=== PATIENT | female | born 1950 | race Caucasian/White ===

== ENCOUNTER 2018-10-02 10:18 | Outpatient (CLI) | payer MEDICARE, MEDICAID, SELFPAY ==
[2018-10-02 11:41] LABS: Abs Immature Grans 0.01 k/cumm (0.0-0.09); Absolute Basophil Count 0.03 k/cumm (0.0-0.2); Absolute Eosinophil Count 0.14 k/cumm (0.0-0.7); Absolute Lymphocyte Count 2.85 k/cumm (1.2-3.4); Absolute Monocyte Count 0.75 k/cumm (0.11-0.7); Absolute Neutrophil Count 4.12 k/cumm (1.2-6.7); Basophils % 0.4; Eosinophils % 1.8; HCT 37.2 % (36.0-46.0); HGB 12.7 g/dL (12.0-15.5); Immature Grans % 0.1; Lymphocytes % 36.1; Mean Corp. HGB Concentration 34.1 g/dL (32.0-36.0); Mean Corpuscular Hemoglobin 29.5 pg (27.0-33.0); Mean Corpuscular Volume 86.3 fL (80-95); Mean Platelet Volume 9.8 fL (8.0-11.0); Monocytes % 9.5; Neutrophils % 52.1; Platelet Count 324 x1000/uL (130-400); RBC 4.31 m/cumm (4.00-5.20); RBC Distribution Width 12.6 % (11.7-14.6)
[2018-10-02 12:38] LABS: ALT 29 U/L (12-78); AST 19 U/L (15-37); Albumin 3.4 g/dL (3.4-5.0); Alkaline Phosphatase 80 U/L (46-116); Anion Gap 7.2 mmol/L (3-11); BUN 21 mg/dL (7-18); Bilirubin, Total 0.5 mg/dL (0.2-1.0); CO2 28.8 mmol/L (21.0-32.0); CREATININE 0.78 mg/dL (0.55-1.02); Calcium 9.2 mg/dL (8.5-10.1); Chloride 101 mmol/L (98-107); Cholesterol 250 mg/dL (50-200); Glucose 101 mg/dL (70-100); HDL Cholesterol 81 mg/dL (40-60); LDL CHOLESTEROL 145 mg/dL (<100); Potassium 3.9 mmol/L (3.5-5.1); Sodium 137 mmol/L (136-145); TSH 3.49 uIU/mL (0.358-3.74); Total Protein 7.1 g/dL (6.4-8.2); Triglyceride 58 mg/dL (30-150)
== END 2018-10-02 10:38 ==
PROVIDERS: PCP Naturopath; Visit Provider Naturopath
DX: I10 Essential (primary) hypertension (principal); R21 Rash and other nonspecific skin eruption
CPT/HCPCS: 36415; 80053; 80061; 82306; 83721; 84443; 85025

== ENCOUNTER 2025-03-11 16:04 | Inpatient (IN) | payer MEDICARE, MEDICAID, SELFPAY ==
[2025-03-11] VITALS (57 sets, daily range): BP systolic 160–235; BP diastolic 76–145; PULSE 74–103; RESP 11–30; TEMP 36.8; O2SAT 96–99
--- NOTE | 2025-03-11 16:16 | DI.CT_ITS ---
Exam(s) CT BRAIN NECK CTA EXAM: CT BRAIN NECK CTA CLINICAL HISTORY: code stroke, R UE weakness + dysmetria. TECHNIQUE: Imaging Protocol: Axial CT angiography was performed with multi- slice acquisition and multi-planar and/or 3D reconstructions. CONTRAST MATERIAL: Intravenous: Omnipaque 350 Contrast volume:70 mL COMPARISON: No exams were available for comparison FINDINGS: CTA Neck W: ANTERIOR CIRCULATION:: Aortic arch is conventional. There is no significant stenosis at the origin of the common carotid arteries. Both common carotid arteries ascend with normal luminal diameters. There is minimal plaque at the carotid bifurcations and proximal ICAs with no significant stenosis at these levels. Both internal carotid arteries are also demonstrated to be nicely patent in the upper neck and skull base-carotid canals. POSTERIOR CIRCULATION. The dominant left vertebral artery originates in conventional fashion off of the left subclavian artery and ascends with a luminal diameter 3.5 mm in the foramen transverse area and is the main contributor to formation of the basilar artery at the skull base. The smaller right vertebral artery arises off the medial wall of the right subclavian artery without stenosis at this level and it ascends in the foramen transverse area with luminal diameter of 1.8 mm. At the skull base it terminates as the right posterior inferior cerebellar artery CTA Brain W: Anterior circulation: Both internal carotid arteries are patent in the skull base-carotid canals as well as within the cavernous sinuses. The supraclinoid aspects of the ICAs are patent. Both A1 segments are patent as are the anterior cerebral arteries and there is no evidence of aneurysm at the level of the anterior communicating artery. Both middle cerebral arteries are patent with no evidence of significant stenosis nor intraluminal thrombus. There also no aneurysms of these vessels. Posterior circulation: The basilar artery ascends in the midline. Distally it gives off patent bilateral superior cerebellar arteries. Above this level both posterior cerebral arteries are predominantly supplied by persistent circulation-posterior communicating arteries on both sides the itxfke-kv-sxrcjl. both p1 segments are atretic. There is no evidence of aneurysm at the tip of the basilar artery nor elsewhere in the jdnmzx-hx-Loltrb. CT BRAIN: There is no evidence of intracranial hemorrhage, mass effect, or shift of midline structures. There are no extra-axial fluid collections. Ventricles are not enlarged or shifted. There are no ring enhancing lesions in the brain and no abnormal meningeal enhancement. There is a well-defined CSF hypodensity in the anterior limb of the right internal capsule measuring 1.0 x 0.5 x 1.0 cm and most probably a nonacute and nonhemorrhagic lacunar infarct. No similar finding seen elsewhere in the brain. IMPRESSION: 1. Patent carotid arteries in the neck. No hemodynamically significant stenosis. No dissection 2. Patent vertebral arteries. The left vertebral artery is dominant 3. Patent intracranial arteries. Incidentally noted is persistent circulation in the posterior circulation of the brain with patent posterior communicating arteries on both sides the aompvl-dk-Senzuf being the predominant feeders of the bilateral posterior cerebral arteries. 4. There is a 10 x 5 x 10 mm nonacute appearing nonhemorrhagic lacunar infarct in the anterior limb of the right internal capsule of the brain. No evidence of acute territorial infarct and no evidence of intracranial hemorrhage. Report called by myself to ER provider 03/11/2025 at 5 p.m. RADIATION DOSE DELIVERED: 2,198.34mGy.cm Total DLP DATA REPOSITORY: All CT scans at this facility are submitted to the National Radiology Data Registry (NRDR) Dose Index Registry (DIR) with the [employer] ([employer]). RADIATION OPTIMIZATION: All CT scans at this facility use at least one of these dose optimization techniques: automated exposure control; mA and/or kV adjustment per patient size (includes targeted exams where dose is matched to clinical indication); or iterative reconstruction.
[2025-03-11 16:32] LABS: Abs Immature Grans 0.02 10^3/uL (0.0-0.06); HCT 40.7 % (36.0-46.0); HGB 13.4 g/dL (11.2-15.7); Immature Grans % 0.2 %; MCH 29.2 pg (27.0-33.0); MCHC 32.9 % (32.0-36.0); MCV 89 fL (80-95); MPV 9.5 fL (8.0-11.0); Platelet Count 319 10^3/uL (130-400); RBC 4.59 10^6/uL (3.93-5.22); RDW 13.1 % (11.7-14.6); RDW-SD 42.8 fL; WBC 8.84 10^3/uL (4.4-10.8)
[2025-03-11] MEDS: Normal Saline - Diluent 50 ML VIAL IJ (16:34)
[2025-03-11] MEDS: Normal Saline Flush 10 ML SYR IVP (16:36)
[2025-03-11] MEDS: Omnipaque 350 MG/ML 100 ML BTL IJ (16:36)
[2025-03-11 16:47] LABS: INR 1.0 (0.9-1.1); PTT Activated 24.7 sec (20.6-30.2); Prothrombin Time 10.4 sec (9.1-11.1)
--- NOTE | 2025-03-11 16:49 | ED.GENADUL_ITS ---
Discharge Plan Disposition Patient Disposition: Admit to [facility] Condition: Stable Discharge Details Clinical Impression: Cerebrovascular accident Admit Date/Time: 03/11/25 19:06 Admit Provider: Vu Downey Attending Provider: Vu Downey Primary Care Provider: Kristina Junior ED Provider: Bruce Torres [facility] General Date/Time Provider Initiated Documentation: 03/11/25 16:11 . HPI Narrative: 75 year-old female presents to ED today by POV/ambulating with her with a chief complaint of possible stroke- felt off this morning mid-morning, took a nap for 30 minutes, woke up with vertigo, R sided weakness/coordination issues, and gait problems with onset around 1130- but notes that she had more noticeable tingling and numbness to R hand about 1.5 hours ago. Quality described as feels off, weak on R hand/foot, no radiation to visual changes, endorses mild speech abnormality, denies chest pain, paresis. Severity is described as unable to quantify. Palliating factors include nothing attempted. Provoking factors include nothing specific. Events leading up to the incident/Associated Symptoms: Patient denies stroke history. Patient not anticoagulated. Related Data Home Medications Medication Instructions Recorded Confirmed losartan 50 mg tablet 50 mg PO BID 03/11/25 General Stated Complaint: CVA/TIA ALVIN: 2 Review of Systems All systems reviewed & are unremarkable except as noted in HPI and below Exam Narrative Exam Narrative: GENERAL APPEARANCE: Well-nourished, non-toxic, awake and alert, atraumatic, mild acute distress. SKIN: Warm, pink, dry, intact, without rashes/lesions/ulcerations. HEAD: Normocephalic, atraumatic, normal hair distribution for gender/age. EYES: Normal conjunctiva, no exudates on lids/lashes, EOMs intact without nystagmus, no visual field deficits, vision grossly intact ENT: Nares patent, no circumoral cyanosis, no facial swelling NECK: Supple, trachea midline, painless cervical ROM. LUNGS/CHEST: Lungs CTA bilaterally- no rhonchi/rales/wheezes diffusely, non- labored respirations, normal A/P diameter, symmetrical expansion, no chest wall deformity HEART (CV/PV): Regular rate and rhythm without murmur, no peripheral edema, no JVD. ABDOMEN: Soft, non-distended, no guarding, no tenderness. MSK: Normal ROM, no swelling/deformity to bilateral UEs or LEs, moving all extremities without weakness, no cyanosis, spine midline without tenderness, normal curvature. NEURO: Mental Status AAOx4 - alert to person, place, time, events, states no ifs ands or buts without slurred speech No facial droop, no forehead involvement, has dysmetria with FNF, able to perform heel-sy Motor: No focal weakness - strength 5/5 in bilateral UEs and LEs, proximal, strength 4+/5 distal R LE and R UE, shoulder shrug 5/5 Sensory: sensation intact to light touch globally, endorses less distinct on R face Gait unsteady PSYCH: euthymic, cooperative, pleasant, appropriate speech Course Vital Signs Vital signs: Vital Signs Temperature 36.8 C 03/11/25 16:08 Pulse 99 H 03/11/25 16:08 Respiratory Rate 20 03/11/25 16:08 Blood Pressure 232/116 H 03/11/25 16:08 Pulse Oximetry 96 03/11/25 16:08 Temperature 36.8 C 03/11/25 16:08 Pulse 99 H 03/11/25 16:08 Respiratory Rate 20 03/11/25 16:08 Blood Pressure 232/116 H 03/11/25 16:08 Blood Pressure Position Sitting 03/11/25 16:08 Pulse Oximetry 96 03/11/25 16:08 Oxygen Delivery Method Room Air 03/11/25 16:08 Oxygen Flow Rate 0 03/11/25 16:08 Lab/Test Results Lab/Test Results: Laboratory Tests Range/Units 03/11/25 16:20 WBC (4.4-10.8) 10^3/uL 8.84 RBC (3.93-5.22) 10^6/uL 4.59 Hgb (11.2-15.7) g/dL 13.4 Hct (36.0-46.0) % 40.7 MCV (80-95) fL 89 MCH (27.0-33.0) pg 29.2 MCHC (32.0-36.0) % 32.9 RDW (11.7-14.6) % 13.1 Plt Count (130-400) 10^3/uL 319 MPV (8.0-11.0) fL 9.5 Immature Gran % % 0.2 Neutrophils % % 65.1 Lymphocytes % % 28.8 Monocytes % % 5.0 Eosinophils % % 0.3 Basophils % % 0.6 Nucleated RBC % (0.0-0.3) % 0.0 Absolute Neutrophils (1.2-6.7) 10^3/uL 5.75 Absolute Lymphocytes (1.2-3.4) 10^3/uL 2.55 Absolute Monocytes (0.1-0.8) 10^3/uL 0.44 Absolute Eosinophils (0.0-0.7) 10^3/uL 0.03 Absolute Basophils (0.0-0.2) 10^3/uL 0.05 PT (9.1-11.1) sec 10.4 INR (0.9-1.1) 1.0 APTT (20.6-30.2) sec 24.7 Medical Decision Making This dictation utilizes [id number]-casf dictation software and may contain unedited grammatical errors. 75 year-old female presents to ED today by POV/ambulating with her with a chief complaint of possible stroke- felt off this morning mid-morning, took a nap for 30 minutes, woke up with vertigo, R sided weakness/coordination issues, and gait problems with onset around 1130- but notes that she had more noticeable tingling and numbness to R hand about 1.5 hours ago. Quality described as feels off, weak on R hand/foot, no radiation to visual changes, endorses mild speech abnormality, denies chest pain, paresis. Severity is described as unable to quantify. Palliating factors include nothing attempted. Provoking factors include nothing specific. Events leading up to the incident/Associated Symptoms: Patient denies stroke history. Patients' medical history: Hypertension. Family and social history: Lives at home with her , gets regular exercise eats a normal diet. Pertinent exam findings / vital signs include extremely hypertensive on arrival 230/115, having dysmetria of the right upper extremity, visual crooks intact, strength is 4+/5 in the right arm only and 4+/5 with plantarflexion, the proximal extremities strength is 5/5, patient states no ifs, ands or buts, identifies objects, has no nystagmus, shoulder shrug 5/5, has dysmetria with pjgvxg-yigr-kkyqqt but able to perform heel sy. Differential / pathologies of concern include stroke, hypertensive emergency. Diagnostic studies of: - Code stroke-CTA of the brain and neck, CBC, CMP, coagulation studies, magnesium, serial troponins, TSH, UA, alcohol level, EKG. - CTA shows an old lacunar infarct but no medium or large vessel occlusion and no new infarction - EKG shows diffuse ST depressions likely from her hypertensive emergency - CBC is unremarkable - Coagulation studies within normal limits - CMP shows only mild hypokalemia 3.4 - Magnesium within normal limits - TSH within normal limits - Alcohol level negative - UA is benign - Initial troponin 20, 2-hour repeat shows a troponin of 209 likely in the setting of uncontrolled hypertension Interventions of: - Teleneuro was performed, patient is outside window for thrombolytic per my evaluation of onset as well as neurology, difficult historian but symptoms were definitely present this morning in the mid morning prior to her nap and when she woke which puts her outside window. Started on 300 of Plavix as well as full- strength aspirin and 80 of atorvastatin, discussed with hospitalist Dr. Downey who admitted the patient to ICU as we did place her on nicardipine drip with goal of reducing her blood pressure 10%. ED Course/Assessment/Plan: 75-year-old female presents with onset of strokelike syndrome at some point this midmorning possibly around 11 AM, she states she felt off and then went to take a 30-minute nap and after she awoke she had vertigo, she notes she had some weakness to the right arm that seems to be getting worse throughout the afternoon and about an hour and a half ago endorse some numbness of the right leg and arm, she has dysmetria with the right upper extremity and a mild weakness of the distal right extremities only, I spoke with teleneurology who states that she is outside window, we did start her on Plavix aspirin and statin, this also may be a syndrome of hypertensive emergency, the patient was started on nicardipine with a goal of lowering the blood pressure 10% over the first couple hours, patient was admitted to ICU by Dr. Downey. Disposition of Cerebrovascular Accident. Patient verbalized understanding of the plan and return to ED criteria and engaged in shared decision making. Medical Records Medical records reviewed: Yes I reviewed the patient's medical records. Imaging Data Radiologic Study: Attestation: I personally reviewed and interpreted this imaging study as follows: Imaging: CT Scan Radiologist's impression: EXAM: CT BRAIN NECK CTA CLINICAL HISTORY: code stroke, R UE weakness + dysmetria. TECHNIQUE: Imaging Protocol: Axial CT angiography was performed with multi- slice acquisition and multi-planar and/or 3D reconstructions. CONTRAST MATERIAL: Intravenous: Omnipaque 350 Contrast volume:70 mL COMPARISON: No exams were available for comparison FINDINGS: CTA Neck W: ANTERIOR CIRCULATION:: Aortic arch is conventional. There is no significant stenosis at the origin of the common carotid arteries. Both common carotid arteries ascend with normal luminal diameters. There is minimal plaque at the carotid bifurcations and proximal ICAs with no significant stenosis at these levels. Both internal carotid arteries are also demonstrated to be nicely patent in the upper neck and skull base-carotid canals. POSTERIOR CIRCULATION. The dominant left vertebral artery originates in conventional fashion off of the left subclavian artery and ascends with a luminal diameter 3.5 mm in the foramen transverse area and is the main contributor to formation of the basilar artery at the skull base. The smaller right vertebral artery arises off the medial wall of the right subclavian artery without stenosis at this level and it ascends in the foramen transverse area with luminal diameter of 1.8 mm. At the skull base it terminates as the right posterior inferior cerebellar artery CTA Brain W: Anterior circulation: Both internal carotid arteries are patent in the skull base-carotid canals as well as within the cavernous sinuses. The supraclinoid aspects of the ICAs are patent. Both A1 segments are patent as are the anterior cerebral arteries and there is no evidence of aneurysm at the level of the anterior communicating artery. Both middle cerebral arteries are patent with no evidence of significant stenosis nor intraluminal thrombus. There also no aneurysms of these vessels. Posterior circulation: The basilar artery ascends in the midline. Distally it gives off patent bilateral superior cerebellar arteries. Above this level both posterior cerebral arteries are predominantly supplied by persistent circulation-posterior communicating arteries on both sides the ximnyf-qg-zezqjq. both p1 segments are atretic. There is no evidence of aneurysm at the tip of the basilar artery nor elsewhere in the gaizvn-hz-Etssls. CT BRAIN: There is no evidence of intracranial hemorrhage, mass effect, or shift of midline structures. There are no extra-axial fluid collections. Ventricles are not enlarged or shifted. There are no ring enhancing lesions in the brain and no abnormal meningeal enhancement. There is a well-defined CSF hypodensity in the anterior limb of the right internal capsule measuring 1.0 x 0.5 x 1.0 cm and most probably a nonacute and nonhemorrhagic lacunar infarct. No similar finding seen elsewhere in the brain. IMPRESSION: 1. Patent carotid arteries in the neck. No hemodynamically significant stenosis. No dissection 2. Patent vertebral arteries. The left vertebral artery is dominant 3. Patent intracranial arteries. Incidentally noted is persistent circulation in the posterior circulation of the brain with patent posterior communicating arteries on both sides the jdamuz-za-Hwluli being the predominant feeders of the bilateral posterior cerebral arteries. 4. There is a 10 x 5 x 10 mm nonacute appearing nonhemorrhagic lacunar infarct in the anterior limb of the right internal capsule of the brain. No evidence of acute territorial infarct and no evidence of intracranial hemorrhage. Report called by myself to ER provider 03/11/2025 at 5 p.m. Lab Data Lab results reviewed: Yes I reviewed the patient's lab results. Labs: Laboratory Tests Range/Units 03/11/25 03/11/25 03/11/25 16:20 16:45 18:10 WBC (4.4-10.8) 10^3/uL 8.84 RBC (3.93-5.22) 10^6/uL 4.59 Hgb (11.2-15.7) g/dL 13.4 Hct (36.0-46.0) % 40.7 MCV (80-95) fL 89 MCH (27.0-33.0) pg 29.2 MCHC (32.0-36.0) % 32.9 RDW (11.7-14.6) % 13.1 Plt Count (130-400) 10^3/uL 319 MPV (8.0-11.0) fL 9.5 Immature Gran % % 0.2 Neutrophils % % 65.1 Lymphocytes % % 28.8 Monocytes % % 5.0 Eosinophils % % 0.3 Basophils % % 0.6 Nucleated RBC % (0.0-0.3) % 0.0 Absolute Neutrophils (1.2-6.7) 10^3/uL 5.75 Absolute Lymphocytes (1.2-3.4) 10^3/uL 2.55 Absolute Monocytes (0.1-0.8) 10^3/uL 0.44 Absolute Eosinophils (0.0-0.7) 10^3/uL 0.03 Absolute Basophils (0.0-0.2) 10^3/uL 0.05 PT (9.1-11.1) sec 10.4 INR (0.9-1.1) 1.0 APTT (20.6-30.2) sec 24.7 Sodium (136-145) mmol/L 136 Potassium (3.5-5.1) mmol/L 3.4 L Chloride (98-107) mmol/L 99 Carbon Dioxide (21.0-32.0) mmol/L 25.3 Anion Gap (3-11) mmol/L 11.7 H BUN (7-18) mg/dL 25 H Creatinine (0.55-1.02) mg/dL 0.8 Est GFR (CKD-EPI 2020) (mL/min/1.73m2) 76.31 Glucose (74-106) mg/dL 158 H Calcium (8.5-10.1) mg/dL 9.0 Magnesium (1.8-2.4) mg/dL 2.1 Total Bilirubin (0.2-1.0) mg/dL 0.3 AST (15-37) U/L 24 ALT (14-59) U/L 46 Alkaline Phosphatase (46-116) U/L 99 Troponin I (<or=51) ng/L 20 209 H* Total Protein (6.4-8.2) g/dL 8.3 H Albumin (3.4-5.0) g/dL 4.0 TSH (0.36-3.74) uIU/mL 2.68 Urine Color (Yellow) Yellow Urine Clarity (Clear) Clear Urine pH (5-8) 7.0 Ur Specific [place] (1.005-1.025) >= 1.030 H Urine Protein (Neg-Trace) mg/dL >=300 H Urine Ketones (Negative) mg/dL 15 H Urine Blood (Negative) Trace-lysed H Urine Nitrite (Negative) Negative Urine Bilirubin (Negative) Negative Urine Urobilinogen (Up to 0.2) mg/dL 0.2 Ur Leukocyte Esterase (Negative) Negative Urine RBC (0-2) HPF 5-10 H Urine WBC (0-5) HPF 3-5 Ur Epithelial Cells (Negative) HPF Moderate Urine Crystals (Negative) HPF Negative Urine Bacteria (Negative) HPF Moderate Urine Casts (Negative) LPF Negative Urine Mucus (Negative) Negative Ur Culture Indicated? No Urine Glucose (Negative) mg/dL Negative Ethyl Alcohol (<10) mg/dL < 3.0 PFSH All Active Problems (Updated 03/11/25 @ 20:34 by WENDY Bliss) Cerebrovascular accident (Chronic) Social History Smoking/Tobacco Use Status: Never Smoking risk assessment performed?: Yes Drug use: Never Do you feel safe at home: Yes Do you feel safe in your relationship?: Yes
[2025-03-11 16:50] LABS: ALT 46 U/L (14-59); AST 24 U/L (15-37); Albumin 4.0 g/dL (3.4-5.0); Alkaline Phosphatase 99 U/L (46-116); Anion Gap 11.7 mmol/L (3-11); BUN 25 mg/dL (7-18); Bilirubin, Total 0.3 mg/dL (0.2-1.0); CO2 25.3 mmol/L (21.0-32.0); Calcium 9.0 mg/dL (8.5-10.1); Chloride 99 mmol/L (98-107); Glucose 158 mg/dL (74-106); Magnesium 2.1 mg/dL (1.8-2.4); Potassium 3.4 mmol/L (3.5-5.1); Sodium 136 mmol/L (136-145); Total Protein 8.3 g/dL (6.4-8.2); Troponin I 20 ng/L (<or=51)
[2025-03-11 17:03] LABS: Glucose Negative (Negative)
[2025-03-11 17:10] LABS: C & S Indicated? No
[2025-03-11 17:13] LABS: TSH (W/Ref FT4) 2.68 uIU/mL (0.36-3.74)
[2025-03-11] MEDS: Clopidogrel 300 MG TAB PO (18:12)
[2025-03-11] MEDS: niCARdipine 25 MG in Normal Saline 240 ML 50 MG IV (18:12)
[2025-03-11] MEDS: Aspirin 325 MG TAB PO (18:13)
[2025-03-11] MEDS: Atorvastatin 40 MG TAB 80 MG PO (18:13)
[2025-03-11 18:43] LABS: Troponin I 209 ng/L (<or=51)
--- NOTE | 2025-03-11 19:00 | RT.EKG_ITS ---
APPROVED REPORT Exam: Resting ECG Reason for Exam: elev trop Patient Location: E HR:99 bpm ECG Measurements Heart Rate 99 AXIS HI 153 P 63 QRSd 82 QRS 23 QT 368 T 63 QTc 474 Conclusion Sinus rhythm...normal P axis, V-rate 60- 99 Repol abnrm suggests ischemia, anterolateral...ST dep, T neg, I aVL V2-V6
--- NOTE | 2025-03-11 19:27 | NUR.NOTE ---
Nursing Note: Pt. concerned that her BP is dropping too low too fast, she was reassured that her BP and her vitals look great. The hospitalist was just in the room with the patient explaining everything but patient is insisting she needs to talk to the Provider again because she is concerned about her BP being too low, her BP is currently 170/120. Pt. was reassured by this nurse but she is insisting she wants to hear from the physician. I informed the patient that I would let the provider know, Hospitalist was called and he said he was too busy at the moment. Pt. asking to call the physician herself, called [facility] with her personal cell phone to attempt this. Pt. being very rude with me when trying to explain her disease process. Cardene Drip stopped due to patient stating her heart was racing and she felt that she shouldn't be getting it. Hospitalist was notified and is ok with the drip being stopped at this time.
--- NOTE | 2025-03-11 20:07 | W.PCEDHO ---
Registration Status: REG ER Primary Language: Preferred Language: Telugu ED Information & Data Chief Complaint CVA/TIA 03/11/25 16:50 Triage Note PT started experiencing r 03/11/25 16:08 sided weakness 4 hours ago. Tingling sensation/numbness 1 hour ago. Most Recent Vital Signs Temperature 36.8 C 03/11/25 16:08 Pulse 96 H 03/11/25 18:49 Pulse Rhythm Regular 03/11/25 18:49 Pulse Strength Normal 03/11/25 18:49 Pulse 93 H 03/11/25 18:31 Respiratory Rate 18 03/11/25 18:49 Respiratory Effort Normal 03/11/25 18:49 Respiratory Depth Normal 03/11/25 18:49 Respiratory Pattern Normal 03/11/25 18:49 Blood Pressure 169/83 H 03/11/25 18:49 Blood Pressure Mean 111 03/11/25 18:49 Blood Pressure Position Sitting 03/11/25 18:49 Pulse Oximetry 98 03/11/25 18:49 Oxygen Delivery Method Room Air 03/11/25 18:49 Oxygen Flow Rate 0 03/11/25 18:49 Precautions Isolation Standard precaution 03/11/25 16:16 Active Medications Generic Name Dose Route Start Last Admin Trade Name Freq PRN Reason Stop Dose Admin Atorvastatin Calcium 80 mg 03/11/25 20:00 03/11/25 18:13 Atorvastatin 40 Mg Tab PO 80 mg QPM JHONNY Administration Nicardipine HCl 25 mg/ Sodium 250 mls @ 0 mls/hr 03/11/25 18:00 03/11/25 18:56 Chloride IV 2.5 mg/hr INFUSION JHONNY 25 mls/hr Protocol Titration Per Protocol Iohexol 100 ml 03/11/25 16:45 03/11/25 16:36 Omnipaque 350 Mg/Ml 100 Ml Btl IJ 04/10/25 23:59 70 ml DIRECTED JHONNY Administration Sodium Chloride 50 ml 03/11/25 16:45 03/11/25 16:34 Normal Saline - Diluent 50 Ml Vial IJ 50 ml DIRECTED JHONNY Administration Sodium Chloride 0 ml 03/11/25 16:31 03/11/25 16:36 Normal Saline Flush 10 Ml Syr IVP 10 ml PRN PRN Administration IV IV Catheter Type [Left Saline Lock Antecubital] IV Catheter Gauge [Left 18 Antecubital] Diet Orders Category Date Time Status Nothing Per Oral [DIET] Nutrition 03/11/25 19:07 Active Diagnostics 03/11/25 03/11/25 03/11/25 Range/Units 18:10 16:45 16:20 WBC 8.84 (4.4-10.8) 10^3/uL RBC 4.59 (3.93-5.22) 10^6/uL Hgb 13.4 (11.2-15.7) g/dL Hct 40.7 (36.0-46.0) % MCV 89 (80-95) fL MCH 29.2 (27.0-33.0) pg MCHC 32.9 (32.0-36.0) % RDW 13.1 (11.7-14.6) % Plt Count 319 (130-400) 10^3/uL MPV 9.5 (8.0-11.0) fL Immature Gran % 0.2 % Neutrophils % 65.1 % Lymphocytes % 28.8 % Monocytes % 5.0 % Eosinophils % 0.3 % Basophils % 0.6 % Nucleated RBC % 0.0 (0.0-0.3) % Absolute Neutrophils 5.75 (1.2-6.7) 10^3/uL Absolute Lymphocytes 2.55 (1.2-3.4) 10^3/uL Absolute Monocytes 0.44 (0.1-0.8) 10^3/uL Absolute Eosinophils 0.03 (0.0-0.7) 10^3/uL Absolute Basophils 0.05 (0.0-0.2) 10^3/uL PT 10.4 (9.1-11.1) sec INR 1.0 (0.9-1.1) APTT 24.7 (20.6-30.2) sec Sodium 136 (136-145) mmol/L Potassium 3.4 L (3.5-5.1) mmol/L Chloride 99 (98-107) mmol/L Carbon Dioxide 25.3 (21.0-32.0) mmol/L Anion Gap 11.7 H (3-11) mmol/L BUN 25 H (7-18) mg/dL Creatinine 0.8 (0.55-1.02) mg/dL Est GFR (CKD-EPI 2020) 76.31 (mL/min/1.73m2) Glucose 158 H (74-106) mg/dL Calcium 9.0 (8.5-10.1) mg/dL Magnesium 2.1 (1.8-2.4) mg/dL Total Bilirubin 0.3 (0.2-1.0) mg/dL AST 24 (15-37) U/L ALT 46 (14-59) U/L Alkaline Phosphatase 99 (46-116) U/L Troponin I 209 H* 20 (<or=51) ng/L Total Protein 8.3 H (6.4-8.2) g/dL Albumin 4.0 (3.4-5.0) g/dL TSH 2.68 (0.36-3.74) uIU/mL Urine Color Yellow (Yellow) Urine Clarity Clear (Clear) Urine pH 7.0 (5-8) Ur Specific Julian >= 1.030 H (1.005-1.025) Urine Protein >=300 H (Neg-Trace) mg/dL Urine Ketones 15 H (Negative) mg/dL Urine Blood Trace-lysed H (Negative) Urine Nitrite Negative (Negative) Urine Bilirubin Negative (Negative) Urine Urobilinogen 0.2 (Up to 0.2) mg/dL Ur Leukocyte Esterase Negative (Negative) Urine RBC 5-10 H (0-2) HPF Urine WBC 3-5 (0-5) HPF Ur Epithelial Cells Moderate (Negative) HPF Urine Crystals Negative (Negative) HPF Urine Bacteria Moderate (Negative) HPF Urine Casts Negative (Negative) LPF Urine Mucus Negative (Negative) Ur Culture Indicated? No Urine Glucose Negative (Negative) mg/dL Ethyl Alcohol < 3.0 (<10) mg/dL [id number] Documentation Fingerstick Glucose Start: 03/11/25 16:19 Freq: Status: Active Protocol: Activity Type Activity Date Activity User E-sign Co-sign Detail Recorded Client Recorded Date Recorded By Document 03/11/25 16:18 BKG DAEMON(10) [id number] 03/11/25 16:19 BKG DAEMON(10) Intake and Output - 24 Hour Total 03/11/25 16:04 thru 03/11/25 18:56 Intake Total 46.667 Balance 46.667 Weight 45.359 kg Intake: IV 46.667 Falls Risk Assessment History of Falls No History 03/11/25 16:58 Contributing Factors No Factors 03/11/25 16:58 Ambulatory Aids Independent 03/11/25 16:58 Tubes/Lines None 03/11/25 16:58 Gait Evaluation No gait disturbance 03/11/25 16:58 Cognition No cognitive impairment 03/11/25 16:58 Fall Total Score 0 03/11/25 16:58 Level of Risk Standard/Low Risk 03/11/25 16:58 Notes 03/11/25 19:27 Nursing Notes by Preethi Alanis Nursing Note: Pt. concerned that her BP is dropping too low too fast, she was reassured that her BP and her vitals look great. The hospitalist was just in the room with the patient explaining everything but patient is insisting she needs to talk to the Provider again because she is concerned about her BP being too low, her BP is currently 170/120. Pt. was reassured by this nurse but she is insisting she wants to hear from the physician. I informed the patient that I would let the provider know, Hospitalist was called and he said he was too busy at the moment. Pt. asking to call the physician herself, called [facility] with her personal cell phone to attempt this. Pt. being very rude with me when trying to explain her disease process. Cardene Drip stopped due to patient stating her heart was racing and she felt that she shouldn't be getting it. Hospitalist was notified and is ok with the drip being stopped at this time. Initialized on 03/11/25 19:27 - END OF NOTE v v v v v v v v v Sending and/or Receiving Nurses: Please use comment section below to note any information pertinent to the patient hand-off not included above. Information / Comments: Report received from: Shasha MURILLO
[2025-03-11] MEDS: Normal Saline 1,000 ML 150 ML IV (20:52)
--- NOTE | 2025-03-11 21:13 | W.PM.HP.N ---
Date of service: 03/11/25 Time of Service: 21:13 Assessment and Plan Assessment and plan (1) Cerebrovascular accident: Status: Chronic Assessment and plan: Pt CT does show subacute infract but i do have concerns that there is an occult infarct as well. MRI is pending. Goal is to keep blood glucose between 140-180, treat fevers should they occur, cw statin/asa/plavix. Consults to speech/pt/occupational/dietary have been placed. Consider echo but not necessary considering pt's age. Allow for permissive htn as long as bp is less than 220/120. (2) Hypokalemia: Status: Acute Assessment and plan: replace orally (3) Hypertension: Status: Chronic Assessment and plan: as above. Currently on Losartan 50mg po bid. Will need optimization as an outpatient (4) Dyslipidemia: Status: Acute Assessment and plan: Pt will continue with high dose statin (5) Elevated troponin: Status: Acute Assessment and plan: Pt's troponin did increase from 20 to appx 200. Pt remains asymptomatic. EKG does show some mild st depression in lateral leads. repeat troponin and ekg at 2200 (6) Dehydration: Status: Acute Assessment and plan: cw ivf ns at 150/hr (7) Hematuria: Status: Acute Assessment and plan: repeat urinalysis in 4-6 weeks to ensure resolution History of Present Illness History of Present Illness Chief Complaint: cva Narrative: This is a 75-year-old female whose only medical issue is hypertension presents with approximately 8 hours of right-sided numbness. While she was in the ED a CT angiogram was performed which did show a subacute infarct. Patient was subsequently mated to the hospital service for further evaluation and treatment. Consultation to teleneurology was placed. On admission blood pressure was over 220 systolic and she was started on nicardipine drip. Patient will be admitted to be ICU. In regards to further workup her potassium was 3.4. Urinalysis was consistent with UTI with increased specific gravity and an elevated BUN to creatinine ratio. On admission her troponin was 20 but a repeat was 209. Patient did not have any chest pain or shortness of breath. Her total cholesterol value was 205 LDL 145 HDL 81. TSH was 2.68. EKG does show some ST depression in the lateral leads. Of note, an EKG was not available for review on admission. Patient is a full code. Her other complaints are of bilateral lower extremity weakness. I will attach the impression of the CT to the bottom of this there. IMPRESSION: 1. Patent carotid arteries in the neck. No hemodynamically significant stenosis. No dissection 2. Patent vertebral arteries. The left vertebral artery is dominant 3. Patent intracranial arteries. Incidentally noted is persistent circulation in the posterior circulation of the brain with patent posterior communicating arteries on both sides the [id number] being the predominant feeders of the bilateral posterior cerebral arteries. 4. There is a 10 x 5 x 10 mm nonacute appearing nonhemorrhagic lacunar infarct in the anterior limb of the right internal capsule of the brain. No evidence of acute territorial infarct and no evidence of intracranial hemorrhage. Review of Systems All systems reviewed & are unremarkable except as noted in HPI and below PFSH All Active Problems (Updated 03/11/25 @ 21:37 by Vu Downey MD) Hematuria (Acute) Dehydration (Acute) Elevated troponin (Acute) Dyslipidemia (Acute) Hypertension (Chronic) Hypokalemia (Acute) Cerebrovascular accident (Chronic) Social History Smoking/Tobacco Use Status: Never Smoking risk assessment performed?: Yes Drug use: Never Do you feel safe at home: Yes Do you feel safe in your relationship?: Yes Meds Allergies and Home Medications Allergies Allergy/AdvReac Type Severity Reaction Status Date / Time Sulfa (Sulfonamide Allergy Intermediate Itching Verified 03/11/25 21:11 Antibiotics) Home Medications Medication Instructions Recorded Confirmed Type losartan 50 mg tablet 50 mg PO BID 03/11/25 03/11/25 History Exam Narrative Exam Narrative: HEENT-normocephalic atraumatic mucous membranes moist extract motions are intact pupils equal round reactive to light Neck-no lymphadenopathy no JVD no thyromegaly Cardiovascular-regular rate and rhythm no murmur rubs gallops Lungs-clear to auscultation bilaterally with good air exchange Abdomen-soft nontender nondistended bowel sounds active scaphoid Extremities-no sinus clubbing or edema Neurologic-dysmetria with right upper extremity. Symmetrical smile can raise her eyebrows symmetrically bilaterally strength 5 out of 5 in upper and lower extremities bilaterally Results Labs 03/11/25 16:20 03/11/25 16:20 Labs: Laboratory Results - last 24 hr 03/11/25 03/11/25 03/11/25 16:20 16:45 18:10 WBC 8.84 RBC 4.59 Hgb 13.4 Hct 40.7 MCV 89 MCH 29.2 MCHC 32.9 RDW 13.1 Plt Count 319 MPV 9.5 Immature Gran % 0.2 Neutrophils % 65.1 Lymphocytes % 28.8 Monocytes % 5.0 Eosinophils % 0.3 Basophils % 0.6 Nucleated RBC % 0.0 Absolute Neutrophils 5.75 Absolute Lymphocytes 2.55 Absolute Monocytes 0.44 Absolute Eosinophils 0.03 Absolute Basophils 0.05 PT 10.4 INR 1.0 APTT 24.7 Sodium 136 Potassium 3.4 L Chloride 99 Carbon Dioxide 25.3 Anion Gap 11.7 H BUN 25 H Creatinine 0.8 Est GFR (CKD-EPI 2020) 76.31 Glucose 158 H Calcium 9.0 Magnesium 2.1 Total Bilirubin 0.3 AST 24 ALT 46 Alkaline Phosphatase 99 Troponin I 20 209 H* Total Protein 8.3 H Albumin 4.0 TSH 2.68 Urine Color Yellow Urine Clarity Clear Urine pH 7.0 Ur Specific [place] >= 1.030 H Urine Protein >=300 H Urine Ketones 15 H Urine Blood Trace-lysed H Urine Nitrite Negative Urine Bilirubin Negative Urine Urobilinogen 0.2 Ur Leukocyte Esterase Negative Urine RBC 5-10 H Urine WBC 3-5 Ur Epithelial Cells Moderate Urine Crystals Negative Urine Bacteria Moderate Urine Casts Negative Urine Mucus Negative Ur Culture Indicated? No Urine Glucose Negative Ethyl Alcohol < 3.0 Last Vital Signs Temp 36.8 C 03/11/25 16:08 Pulse 96 H 03/11/25 18:49 Resp 18 03/11/25 18:49 BP 169/83 H 03/11/25 18:49 Pulse Ox 98 03/11/25 18:49 Time Spent Time spent with Patient: >75 minutes Time was spent: preparing to see the patient(eg.review tests), obtaining and/or reviewing separately otained hiistory, ordering medications,tests, procedures, referring, communicating with other health long term care social worker, indepentently interpreting results, counseling the patient and care coordination
[2025-03-11] MEDS: POTASSIUM CHLORIDE 20 MEQ/100 ML BAG 50 MEQ IV_INF (22:04)
[2025-03-11] MEDS: Pravastatin 20 MG TAB 80 MG PO (22:04)
[2025-03-11] MEDS: Losartan 50 MG TAB PO (22:05)
--- NOTE | 2025-03-11 22:30 | RT.EKG_ITS ---
APPROVED REPORT Exam: Resting ECG Reason for Exam: Recheck for ST depression Patient Location: I HR:81 bpm ECG Measurements Heart Rate 81 AXIS MT 165 P 56 QRSd 88 QRS 38 QT 417 T 59 QTc 484 Conclusion Sinus rhythm...normal P axis, V-rate 50- 99 Normal Electrocardiogram
[2025-03-11 22:57] LABS: Troponin I 590 ng/L (<or=51)
[2025-03-12] VITALS (109 sets, daily range): BP systolic 139–205; BP diastolic 70–138; PULSE 49–105; RESP 6–32; TEMP 36.5–37.4; O2SAT 81–100
[2025-03-12] MEDS: Omnipaque 350 MG/ML 100 ML BTL IJ (00:57)
[2025-03-12] MEDS: Normal Saline - Diluent 50 ML VIAL IJ (00:58)
[2025-03-12] MEDS: Normal Saline Flush 10 ML SYR IVP (00:59)
--- NOTE | 2025-03-12 01:00 | DI.CT_ITS ---
Exam(s) CT THORAX ABD/PEL CTA EXAM: CT THORAX ABD/PEL CTA CLINICAL HISTORY: possible dissection. TECHNIQUE: Imaging Protocol: Axial CT angiography was performed with multi- slice acquisition and multi-planar and/or 3D reconstructions. Lung Computer Aided Detection (CAD) was utilized. CONTRAST MATERIAL: Intravenous: Omnipaque 350 contrast volume:60 mL Oral: No COMPARISON: No exams were available for comparison FINDINGS: CHEST: Tracheobronchial tree: Patent where visualized. There is no evidence of bronchiectasis. Pulmonary parenchyma: No consolidation or dominant measurable mass. No architectural distortion. There is a 5 mm noncalcified peripheral pulmonary nodule in the left lower lobe. Pulmonary Arteries: Due to the timing of the bolus, evaluation of the pulmonary arteries for pulmonary emboli beyond the segmental branches is suboptimal. No large central pulmonary embolism is present. Mediastinum and Beatrice: No dominant adenopathy or fluid collection. The esophagus is unremarkable. Visualized thyroid: Unremarkable. Pleura: No effusion or pneumothorax. Heart: Cardiomegaly. No coronary artery calcifications are seen. No pericardial effusion. Aorta: Thoracic aorta non-dilated. Atherosclerotic calcification is present. Soft Tissues: Unremarkable. Bones: Within normal limits for the patient's age. ABDOMEN AND PELVIS: Abdomen: Celiac axis/mesenteric arteries: No evidence of occlusion or significant stenosis. Renal Arteries: No evidence of occlusion or significant stenosis. Aorta: No evidence of occlusion or significant stenosis. No aneurysm or dissection. Mild atherosclerotic calcification is present. Pelvis: Iliac Arteries: No evidence of occlusion or significant stenosis. Common Femoral Arteries: No evidence of occlusion or significant stenosis. ABDOMEN: Liver: Normal density. No measurable mass. Portal, superior mesenteric and splenic veins: Unremarkable. Gallbladder and Biliary Tract: No radiodense calculus or dilation. Pancreas: Normal density, no abnormal calcifications or inflammatory process. Spleen: Normal. Adrenals: No masses seen. Kidneys: Normal size, contour and axis. No radiodense stones or obstructive uropathy. No masses seen. Bowel: There is stool throughout the colon suggesting constipation. There is no evidence of bowel obstruction or bowel wall thickening. There is no evidence of pneumatosis. The stomach is incompletely distended limiting evaluation. There is no evidence of appendicitis. Peritoneal Cavity: No ascites, collection or mesenteric inflammatory response. No free air. Lymph Nodes: Within normal limits. Bones: Within normal limits for the patient's age. There is grade 1 anterolisthesis of L4 on L5. There is no spondylolysis. Soft Tissues: Unremarkable. PELVIS: Bladder: Symmetric distention, no gross wall thickening. Reproductive Organs: There are calcifications seen in the uterus likely reflecting uterine fibroids. Lymph Nodes: Within normal limits. Bones: Within normal limits for the patient's age. IMPRESSION: 1. Stool throughout the colon suggesting constipation. 2. There is no acute abdominal or pelvic process. 3. There is no evidence of a thoracic aortic aneurysm or dissection. 4. There is no evidence of an abdominal aortic aneurysm or dissection. 5. There is no acute pulmonary process. 6. 5 mm left lower lobe pulmonary nodule. Solid nodules smaller than 6 mm do not require routine follow-up in all patients with high clinical risk; however, some nodules smaller than 6 mm with suspicious morphology, upper lobe location, or both may warrant follow-up at 12 months (grade 2A; weak recommendation, high-quality evidence). (Jamal et al., 2017) Single solid noncalcified nodules. ???Solid nodules smaller than 6 mm (those 5 mm or smaller) do not require routine follow-up in patients at low risk (grade 1C; strong recommendation, low- or [id number] evidence). (Jamal et al., 2017) 7. The preliminary [facility] report was reviewed. Unexpected findings RADIATION DOSE DELIVERED: 343.72mGy.cm Total DLP DATA REPOSITORY: All CT scans at this facility are submitted to the National Radiology Data Registry (NRDR) Dose Index Registry (DIR) with the [employer] ([employer]). RADIATION OPTIMIZATION: All CT scans at this facility use at least one of these dose optimization techniques: automated exposure control; mA and/or kV adjustment per patient size (includes targeted exams where dose is matched to clinical indication); or iterative reconstruction.
--- NOTE | 2025-03-12 01:00 | RT.EKG_ITS ---
APPROVED REPORT Exam: Resting ECG Reason for Exam[place] [facility] [place] Patient Location: I HR:78 bpm ECG Measurements Heart Rate [address] 148 P 37 QRSd 89 QRS 31 QT 432 T 55 QTc 493 Conclusion Sinus rhythm...normal P axis, V-rate 50- 99 Probable anterior infarct, age indeterminate...Q >35mS, T neg, V2-V5
--- NOTE | 2025-03-12 01:38 | DI.[facility]_ITS ---
PROCEDURE INFORMATION: Exam: CTA Chest With Contrast CTA Abdomen and Pelvis With Contrast Exam date and time: 03/12/2025 12:38 AM Age: 75 years old Clinical indication: Other: Possible dissection TECHNIQUE: Imaging protocol: Computed tomographic angiography of the chest with contrast. Exam focused on the arteries. Computed tomographic angiography of the abdomen and pelvis with contrast. Exam focused on the arteries. 3D rendering (Not supervised by radiologist): MIP and/or 3D reconstructed images were created by the technologist. Total images: 1922 Radiation optimization: All CT scans at this facility use at least one of these dose optimization techniques: automated exposure control; mA and/or kV adjustment per patient size (includes targeted exams where dose is matched to clinical indication); or iterative reconstruction. Contrast material: [id number]; Contrast volume: 60 ml; Contrast route: INTRAVENOUS (IV); COMPARISON: CT BRAIN NECK CTA 03/11/2025 4:23 PM FINDINGS: VASCULATURE: Pulmonary arteries: Suboptimal opacification of pulmonary arterial tree to evaluate for PE. Aorta: No aortic dissection. No aneurysm. Celiac and mesenteric arteries: No occlusion or significant stenosis. Renal arteries: No occlusion or significant stenosis. Right iliac arteries: No occlusion or significant stenosis. Left iliac arteries: No occlusion or significant stenosis. CHEST: Lungs: Unremarkable. No consolidation. No masses. Pleural spaces: Unremarkable. No pneumothorax. No pleural effusion. Heart: Unremarkable. No cardiomegaly. No pericardial effusion. Coronary arteries: No coronary calcification. ABDOMEN AND PELVIS: Liver: No mass. Gallbladder and biliary ducts: Unremarkable. No calcified stones. No ductal dilation. Pancreas: Unremarkable. No mass. No ductal dilation. Spleen: Unremarkable. No splenomegaly. Adrenal glands: Unremarkable. No mass. Kidneys and ureters: Unremarkable. No solid mass. No hydronephrosis. Stomach and bowel: Unremarkable. No obstruction. No mucosal thickening. Significant fecal loading. Appendix: No evidence of appendicitis. Intraperitoneal space: Unremarkable. No free air. No significant fluid collection. Urinary bladder: Unremarkable. No mass. Reproductive: Unremarkable as visualized. Lymph nodes: Unremarkable. No enlarged lymph nodes. Bones/joints: Unremarkable. No acute fracture. Soft tissues: Unremarkable. IMPRESSION: No acute finding. No aortic dissection. Dictated and Authenticated by: Nathan Panda MD. Orderin Shayan Womack MD
--- NOTE | 2025-03-12 01:45 | RT.EKG_ITS ---
APPROVED REPORT Exam: Resting ECG Reason for Exam: Posterior Patient Location: I HR:79 bpm ECG Measurements Heart Rate 79 AXIS IA 140 P 15 QRSd 97 QRS 44 QT 430 T 56 QTc 494 Conclusion Sinus rhythm...normal P axis, V-rate 50- 99 Poor R wave progression
--- NOTE | 2025-03-12 02:10 | W.PM.DS.N ---
Date of service: 03/12/25 Time of Service: 14:00 DS: Diagnosis Discharge Diagnosis (1) Cerebrovascular accident: Status: Chronic (2) Hypokalemia: Status: Acute (3) Hypertension: Status: Chronic (4) Dyslipidemia: Status: Acute (5) Elevated troponin: Status: Acute (6) Dehydration: Status: Acute (7) Hematuria: Status: Acute Discharge Plan Disposition Patient Disposition: Transfer-Acute Inpatient Care Specific Acute Inpt Facility: [facility] Condition: Serious Discharge Details Reason For Visit: CVA Admit Date/Time: 03/11/25 19:06 Admit Provider: Vu Downey Attending Provider: Vu Downey Primary Care Provider: Kristina Junior [facility] Course Hospital Course: This is a 75-year-old female who was initially admitted to the hospital for concerns about a CVA. Patient's main complaint was of right upper extremity numbness as well as dysmetria and increasing exercise intolerance over the last few weeks. Initially the patient's troponin was within normal limits but repeat troponins did show continued elevation going from 20 to high of approximately 590. Multiple EKGs were performed which did show some ST depressions in the lateral leads as well as T wave inversions. Considering the elevation in her troponins as well as your EKG changes I consulted [facility] cardiology service and discussed the case with a Dr. Axel Portillo. Initially there was concern about a aortic dissection so CT thorax chest and abdomen were performed which were negative. At this point Dr. Portillo graciously accepted the patient in transfer. There was recommendations to start a heparin drip as well as start treatment for her her hypertension. Patient is on a Cardene drip and heparin will be started as well. Patient continues to have right-sided upper extremity numbness but denies any chest pain neck pain or significant shortness of breath at this time. Of note she has been complaining of polyuria and her urinalysis was indicative actually of dehydration. I will attach a copy of my H&P to the bottom of this document. H/P This is a 75-year-old female whose only medical issue is hypertension presents with approximately 8 hours of right-sided numbness. While she was in the ED a CT angiogram was performed which did show a subacute infarct. Patient was subsequently mated to the hospital service for further evaluation and treatment. Consultation to teleneurology was placed. On admission blood pressure was over 220 systolic and she was started on nicardipine drip. Patient will be admitted to be ICU. In regards to further workup her potassium was 3.4. Urinalysis was consistent with UTI with increased specific gravity and an elevated BUN to creatinine ratio. On admission her troponin was 20 but a repeat was 209. Patient did not have any chest pain or shortness of breath. Her total cholesterol value was 205 LDL 145 HDL 81. TSH was 2.68. EKG does show some ST depression in the lateral leads. Of note, an EKG was not available for review on admission. Patient is a full code. Her other complaints are of bilateral lower extremity weakness. I will attach the impression of the CT to the bottom of this there. IMPRESSION: 1. Patent carotid arteries in the neck. No hemodynamically significant stenosis. No dissection 2. Patent vertebral arteries. The left vertebral artery is dominant 3. Patent intracranial arteries. Incidentally noted is persistent circulation in the posterior circulation of the brain with patent posterior communicating arteries on both sides the [id number] being the predominant feeders of the bilateral posterior cerebral arteries. 4. There is a 10 x 5 x 10 mm nonacute appearing nonhemorrhagic lacunar infarct in the anterior limb of the right internal capsule of the brain. No evidence of acute territorial infarct and no evidence of intracranial hemorrhage. Narrative Exam Narrative: HEENT-normocephalic atraumatic mucous membranes moist extract motions are intact pupils equal round reactive to light Neck-no lymphadenopathy no JVD no thyromegaly Cardiovascular-regular rate and rhythm no murmur rubs gallops Lungs-clear to auscultation bilaterally with good air exchange Abdomen-soft nontender nondistended bowel sounds active scaphoid Extremities-no sinus clubbing or edema Neurologic-dysmetria with right upper extremity. Symmetrical smile can raise her eyebrows symmetrically bilaterally strength 5 out of 5 in upper and lower extremities bilaterally Assessment and plan (1) Cerebrovascular accident: Status: Chronic Assessment and plan: Pt CT does show subacute infract but i do have concerns that there is an occult infarct as well. MRI is pending. Goal is to keep blood glucose between 140-180, treat fevers should they occur, cw statin/asa/plavix. Consults to speech/pt/occupational/dietary have been placed. Consider echo but not necessary considering pt's age. Allow for permissive htn as long as bp is less than 220/120. (2) Hypokalemia: Status: Acute Assessment and plan: replace orally (3) Hypertension: Status: Chronic Assessment and plan: as above. Currently on Losartan 50mg po bid. Will need optimization as an outpatient (4) Dyslipidemia: Status: Acute Assessment and plan: Pt will continue with high dose statin (5) Elevated troponin: Status: Acute Assessment and plan: Pt's troponin did increase from 20 to appx 200. Pt remains asymptomatic. EKG does show some mild st depression in lateral leads. repeat troponin and ekg at 2200 (6) Dehydration: Status: Acute Assessment and plan: cw ivf ns at 150/hr (7) Hematuria: Status: Acute Assessment and plan: repeat urinalysis in 4-6 weeks to ensure resolution Home Meds and New Rx's Prescriptions: No Action losartan 50 mg tablet 50 mg PO BID Patient Comments: TAKE ONE TABLET BY MOUTH TWICE A DAY Discharge Instructions Activity:: Activity as Tolerated Equipment/Supplies:: No Equipment Needed Diet:: Other Discharge Data Discharge Date/Time-TO BE ENTERED AT DEPARTURE: 03/12/25 15:50 Discharge Comment: with edgar to [facility] DS: Summary Time Spent with Patient providing and/or coordinating discharge services: Less than 30 minutes Status at Discharge Functional status at discharge: uses cane/walker Overall status at discharge: patient is progressing back to baseline Mental Status: mental status grossly normal Speech and Movement: speech and movement normal Mood: congruent mood Affect: normal affect Exam Psych Mental Status: mental status grossly normal Speech and Movement: speech and movement normal Mood: congruent mood Affect: normal affect DS: Data Vitals/I&O Vitals and I&O: Vital Signs Temperature 36.8 C 03/11/25 16:08 Pulse 74 03/12/25 01:01 Pulse Rhythm Regular 03/11/25 18:49 Pulse Strength Normal 03/11/25 18:49 Pulse 76 03/12/25 01:01 Respiratory Rate 19 03/12/25 01:01 Respiratory Effort Normal 03/11/25 18:49 Respiratory Depth Normal 03/11/25 18:49 Respiratory Pattern Normal 03/11/25 18:49 Blood Pressure 185/77 H 03/12/25 01:01 Blood Pressure Mean 107 03/12/25 01:01 Blood Pressure Position Sitting 03/11/25 18:49 Pulse Oximetry 100 03/12/25 00:50 Oxygen Delivery Method Room Air 03/11/25 18:49 Oxygen Flow Rate 0 03/11/25 18:49 Intake & Output 03/11/25 03/11/25 03/12/25 11:59 23:59 11:59 Intake Total 79.584 / 79.584 106.25 / 106.25 Balance 79.584 / 79.584 106.25 / 106.25 Weight 45.359 kg Intake: IV 79.584 / 79.584 106.25 / 106.25 Data Completed and Pending Pending Labs at Discharge: 03/11/25 03/11/25 03/11/25 16:20 16:45 18:10 WBC 8.84 RBC 4.59 Hgb 13.4 Hct 40.7 MCV 89 MCH 29.2 MCHC 32.9 RDW 13.1 Plt Count 319 MPV 9.5 Immature Gran % 0.2 Neutrophils % 65.1 Lymphocytes % 28.8 Monocytes % 5.0 Eosinophils % 0.3 Basophils % 0.6 Nucleated RBC % 0.0 Absolute Neutrophils 5.75 Absolute Lymphocytes 2.55 Absolute Monocytes 0.44 Absolute Eosinophils 0.03 Absolute Basophils 0.05 PT 10.4 INR 1.0 APTT 24.7 Sodium 136 Potassium 3.4 L Chloride 99 Carbon Dioxide 25.3 Anion Gap 11.7 H BUN 25 H Creatinine 0.8 Est GFR (CKD-EPI 2020) 76.31 Glucose 158 H Hemoglobin A1c Calcium 9.0 Magnesium 2.1 Total Bilirubin 0.3 AST 24 ALT 46 Alkaline Phosphatase 99 Troponin I 20 209 H* Total Protein 8.3 H Albumin 4.0 Triglycerides Total Cholesterol LDL Cholesterol, Calc HDL Cholesterol TSH 2.68 Urine Color Yellow Urine Clarity Clear Urine pH 7.0 Ur Specific [place] >= 1.030 H Urine Protein >=300 H Urine Ketones 15 H Urine Blood Trace-lysed H Urine Nitrite Negative Urine Bilirubin Negative Urine Urobilinogen 0.2 Ur Leukocyte Esterase Negative Urine RBC 5-10 H Urine WBC 3-5 Ur Epithelial Cells Moderate Urine Crystals Negative Urine Bacteria Moderate Urine Casts Negative Urine Mucus Negative Ur Culture Indicated? No Urine Glucose Negative Ethyl Alcohol < 3.0 03/11/25 03/12/25 03/12/25 22:32 05:35 07:00 WBC Pending RBC Pending Hgb Pending Hct Pending MCV Pending MCH Pending MCHC Pending RDW Pending Plt Count Pending MPV Pending Immature Gran % Pending Neutrophils % Pending Lymphocytes % Pending Monocytes % Pending Eosinophils % Pending Basophils % Pending Nucleated RBC % Absolute Neutrophils Pending Absolute Lymphocytes Pending Absolute Monocytes Pending Absolute Eosinophils Pending Absolute Basophils Pending PT INR APTT Sodium Pending Potassium Pending Chloride Pending Carbon Dioxide Pending Anion Gap Pending BUN Pending Creatinine Pending Est GFR (CKD-EPI 2020) Pending Glucose Pending Hemoglobin A1c Pending Calcium Pending Magnesium Total Bilirubin Pending AST Pending ALT Pending Alkaline Phosphatase Pending Troponin I 590 H* Pending Total Protein Pending Albumin Pending Triglycerides Pending Total Cholesterol Pending LDL Cholesterol, Calc Pending HDL Cholesterol Pending TSH Pending Urine Color Urine Clarity Urine pH Ur Specific [place] Urine Protein Urine Ketones Urine Blood Urine Nitrite Urine Bilirubin Urine Urobilinogen Ur Leukocyte Esterase Urine RBC Urine WBC Ur Epithelial Cells Urine Crystals Urine Bacteria Urine Casts Urine Mucus Ur Culture Indicated? Urine Glucose Ethyl Alcohol PFSH All Active Problems (Updated 03/13/25 @ 00:00 by AALIYAH ROMANO) Hematuria (Acute) Dehydration (Acute) Elevated troponin (Acute) Dyslipidemia (Acute) Hypertension (Chronic) Hypokalemia (Acute) Cerebrovascular accident (Chronic) Social History Smoking/Tobacco Use Status: Never Smoking risk assessment performed?: Yes Drug use: Never Housing: house Do you feel safe at home: Yes Do you feel safe in your relationship?: Yes Time Spent with Patient Time Spent with Patient: <45 minutes Time was spent: preparing to see the patient(eg.review tests), obtaining and/or reviewing separately otained hiistory, ordering medications,tests, procedures, referring, communicating with other health aged or disabled care worker, indepentently interpreting results, counseling the patient and care coordination
--- NOTE | 2025-03-12 02:16 | DSE_ITS ---
Date of service: 03/12/25 Time of Service: 02:17 DS: Diagnosis Discharge Diagnosis (1) Cerebrovascular accident: Status: Chronic (2) Hypokalemia: Status: Acute (3) Hypertension: Status: Chronic (4) Dyslipidemia: Status: Acute (5) Elevated troponin: Status: Acute (6) Dehydration: Status: Acute (7) Hematuria: Status: Acute Discharge Plan Disposition Patient Disposition: Transfer-Acute Inpatient Care Specific Acute Inpt Facility: [facility] Condition: Serious Discharge Details Reason For Visit: cva Admit Date/Time: 03/11/25 19:06 Admit Provider: Vu Downey Attending Provider: Vu Downey Primary Care Provider: Kristina Junior Hospital Course Hospital Course: This is a 75-year-old female who was initially admitted to the hospital for concerns about a CVA. Patient's main complaint was of right upper extremity numbness as well as dysmetria and increasing exercise intolerance over the last few weeks. Initially the patient's troponin was within normal limits but repeat troponins did show continued elevation going from 20 to high of approximately 590. Multiple EKGs were performed which did show some ST depressions in the lateral leads as well as T wave inversions. Considering the elevation in her troponins as well as your EKG changes I consulted [facility] cardiology service and discussed the case with a Dr. Axel Portillo. Initially there was concern about a aortic dissection so CT thorax chest and abdomen were performed which were negative. At this point Dr. Portillo graciously accepted the patient in transfer. There was recommendations to start a heparin drip as well as start treatment for her her hypertension. Patient is on a Cardene drip and heparin will be started as well. Patient continues to have right-sided upper extremity numbness but denies any chest pain neck pain or significant shortness of breath at this time. Of note she has been complaining of polyuria and her urinalysis was indicative actually of dehydration. I will attach a copy of my H&P to the bottom of this document. H/P This is a 75-year-old female whose only medical issue is hypertension presents with approximately 8 hours of right-sided numbness. While she was in the ED a CT angiogram was performed which did show a subacute infarct. Patient was subsequently mated to the hospital service for further evaluation and treatment. Consultation to teleneurology was placed. On admission blood pressure was over 220 systolic and she was started on nicardipine drip. Patient will be admitted to be ICU. In regards to further workup her potassium was 3.4. Urinalysis was consistent with UTI with increased specific gravity and an elevated BUN to creatinine ratio. On admission her troponin was 20 but a repeat was 209. Patient did not have any chest pain or shortness of breath. Her total cholesterol value was 205 LDL 145 HDL 81. TSH was 2.68. EKG does show some ST depression in the lateral leads. Of note, an EKG was not available for review on admission. Patient is a full code. Her other complaints are of bilateral lower extremity weakness. I will attach the impression of the CT to the bottom of this there. IMPRESSION: 1. Patent carotid arteries in the neck. No hemodynamically significant jack nosis. No dissection 2. Patent vertebral arteries. The left vertebral artery is dominant 3. Patent intracranial arteries. Incidentally noted is persistent circulation in the posterior circulation of the brain with patent posterior communicating arteries on both sides the [id number] being the predominant feeders of the bilateral posterior cerebral arteries. 4. There is a 10 x 5 x 10 mm nonacute appearing nonhemorrhagic lacunar infarct in the anterior limb of the right internal capsule of the brain. No evidence of acute territorial infarct and no evidence of intracranial hemorrhage. Narrative Exam Narrative: HEENT-normocephalic atraumatic mucous membranes moist extract motions are intact pupils equal round reactive to light Neck-no lymphadenopathy no JVD no thyromegaly Cardiovascular-regular rate and rhythm no murmur rubs gallops Lungs-clear to auscultation bilaterally with good air exchange Abdomen-soft nontender nondistended bowel sounds active scaphoid Extremities-no sinus clubbing or edema Neurologic-dysmetria with right upper extremity. Symmetrical smile can raise her eyebrows symmetrically bilaterally strength 5 out of 5 in upper and lower extremities bilaterally Assessment and plan (1) Cerebrovascular accident: Status: Chronic Assessment and plan: Pt CT does show subacute infract but i do have concerns that there is an occult infarct as well. MRI is pending. Goal is to keep blood glucose between 140- 180, treat fevers should they occur, cw statin/asa/plavix. Consults to speech/pt/occupational/dietary have been placed. Consider echo but not necessary considering pt's age. Allow for permissive htn as long as bp is less than 220/120. (2) Hypokalemia: Status: Acute Assessment and plan: replace orally (3) Hypertension: Status: Chronic Assessment and plan: as above. Currently on Losartan 50mg po bid. Will need optimization as an outpatient (4) Dyslipidemia: Status: Acute Assessment and plan: Pt will continue with high dose statin (5) Elevated troponin: Status: Acute Assessment and plan: Pt's troponin did increase from 20 to appx 200. Pt remains asymptomatic. EKG does show some mild st depression in lateral leads. repeat troponin and ekg at 2200 (6) Dehydration: Status: Acute Assessment and plan: cw ivf ns at 150/hr (7) Hematuria: Status: Acute Assessment and plan: repeat urinalysis in 4-6 weeks to ensure resolution Home Meds and New Rx's Prescriptions: No Action losartan 50 mg tablet 50 mg PO BID Patient Comments: TAKE ONE TABLET BY MOUTH TWICE A DAY Discharge Instructions Activity:: Activity as Tolerated Equipment/Supplies:: No Equipment Needed Diet:: Other DS: Summary Time Spent with Patient providing and/or coordinating discharge services: Greater than 30 minutes Status at Discharge Functional status at discharge: bed bound Overall status at discharge: patient is not back to baseline Mental Status: mental status grossly normal Speech and Movement: speech and movement normal Mood: congruent mood Affect: normal affect Exam Narrative Exam Narrative: Exam Narrative: HEENT-normocephalic atraumatic mucous membranes moist extract motions are intact pupils equal round reactive to light Neck-no lymphadenopathy no JVD no thyromegaly Cardiovascular-regular rate and rhythm no murmur rubs gallops Lungs-clear to auscultation bilaterally with good air exchange Abdomen-soft nontender nondistended bowel sounds active scaphoid Extremities-no sinus clubbing or edema Neurologic-dysmetria with right upper extremity. Symmetrical smile can raise h er eyebrows symmetrically bilaterally strength 5 out of 5 in upper and lower extremities bilaterally Psych Mental Status: mental status grossly normal Speech and Movement: speech and movement normal Mood: congruent mood Affect: normal affect DS: Data Vitals/I&O Vitals and I&O: Vital Signs Temperature 36.8 C 03/11/25 20:30 Temperature Source Temporal Artery Scan 03/11/25 20:30 Pulse 74 03/12/25 01:01 Pulse Rhythm Regular 03/11/25 18:49 Pulse Strength Normal 03/11/25 18:49 Pulse 76 03/12/25 01:01 Respiratory Rate 19 03/12/25 01:01 Respiratory Effort Normal, Non-Labored 03/11/25 20:30 Respiratory Depth Normal 03/11/25 20:30 Respiratory Pattern Normal 03/11/25 20:30 Blood Pressure 185/77 H 03/12/25 01:01 Blood Pressure Mean 107 03/12/25 01:01 Blood Pressure Position Sitting 03/11/25 18:49 Pulse Oximetry 100 03/12/25 00:50 Oxygen Delivery Method Room Air 03/11/25 20:30 Oxygen Flow Rate 0 03/11/25 20:30 Intake & Output 03/11/25 03/11/25 03/12/25 11:59 23:59 11:59 Intake Total 79.584 / 79.584 106.25 / 106.25 Output Total 600 / 600 Balance -520.416 / -520.416 106.25 / 106.25 Weight 46 kg Intake: IV 79.584 / 79.584 106.25 / 106.25 Output: Urine 600 / 600 Other: Urine Color Yellow Urine Appearance Cloudy Urine Odor Normal Data Completed and Pending Pending Labs at Discharge: 03/11/25 03/11/25 03/11/25 16:20 16:45 18:10 WBC 8.84 RBC 4.59 Hgb 13.4 Hct 40.7 MCV 89 MCH 29.2 MCHC 32.9 RDW 13.1 Plt Count 319 MPV 9.5 Immature Gran % 0.2 Neutrophils % 65.1 Lymphocytes % 28.8 Monocytes % 5.0 Eosinophils % 0.3 Basophils % 0.6 Nucleated RBC % 0.0 Absolute Neutrophils 5.75 Absolute Lymphocytes 2.55 Absolute Monocytes 0.44 Absolute Eosinophils 0.03 Absolute Basophils 0.05 PT 10.4 INR 1.0 APTT 24.7 Sodium 136 Potassium 3.4 L Chloride 99 Carbon Dioxide 25.3 Anion Gap 11.7 H BUN 25 H Creatinine 0.8 Est GFR (CKD-EPI 2020) 76.31 Glucose 158 H Hemoglobin A1c Calcium 9.0 Magnesium 2.1 Total Bilirubin 0.3 AST 24 ALT 46 Alkaline Phosphatase 99 Troponin I 20 209 H* Total Protein 8.3 H Albumin 4.0 Triglycerides Total Cholesterol LDL Cholesterol, Calc HDL Cholesterol TSH 2.68 Urine Color Yellow Urine Clarity Clear Urine pH 7.0 Ur Specific [place] >= 1.030 H Urine Protein >=300 H Urine Ketones 15 H Urine Blood Trace-lysed H Urine Nitrite Negative Urine Bilirubin Negative Urine Urobilinogen 0.2 Ur Leukocyte Esterase Negative Urine RBC 5-10 H Urine WBC 3-5 Ur Epithelial Cells Moderate Urine Crystals Negative Urine Bacteria Moderate Urine Casts Negative Urine Mucus Negative Ur Culture Indicated? No Urine Glucose Negative Ethyl Alcohol < 3.0 03/11/25 03/12/25 03/12/25 22:32 05:35 07:00 WBC Pending RBC Pending Hgb Pending Hct Pending MCV Pending MCH Pending MCHC Pending RDW Pending Plt Count Pending MPV Pending Immature Gran % Pending Neutrophils % Pending Lymphocytes % Pending Monocytes % Pending Eosinophils % Pending Basophils % Pending Nucleated RBC % Absolute Neutrophils Pending Absolute Lymphocytes Pending Absolute Monocytes Pending Absolute Eosinophils Pending Absolute Basophils Pending PT INR APTT Sodium Pending Potassium Pending Chloride Pending Carbon Dioxide Pending Anion Gap Pending BUN Pending Creatinine Pending Est GFR (CKD-EPI 2020) Pending Glucose Pending Hemoglobin A1c Pending Calcium Pending Magnesium Total Bilirubin Pending AST Pending ALT Pending Alkaline Phosphatase Pending Troponin I 590 H* Pending Total Protein Pending Albumin Pending Triglycerides Pending Total Cholesterol Pending LDL Cholesterol, Calc Pending HDL Cholesterol Pending TSH Pending Urine Color Urine Clarity Urine pH Ur Specific [place] Urine Protein Urine Ketones Urine Blood Urine Nitrite Urine Bilirubin Urine Urobilinogen Ur Leukocyte Esterase Urine RBC Urine WBC Ur Epithelial Cells Urine Crystals Urine Bacteria Urine Casts Urine Mucus Ur Culture Indicated? Urine Glucose Ethyl Alcohol PFSH All Active Problems (Updated 03/11/25 @ 21:37 by Vu Downey MD) Hematuria (Acute) Dehydration (Acute) Elevated troponin (Acute) Dyslipidemia (Acute) Hypertension (Chronic) Hypokalemia (Acute) Cerebrovascular accident (Chronic) Social History Smoking/Tobacco Use Status: Never Smoking risk assessment performed?: Yes Drug use: Never Do you feel safe at home: Yes Do you feel safe in your relationship?: Yes Time Spent with Patient Time Spent with Patient: >85 minutes Time was spent: preparing to see the patient(eg.review tests), obtaining and/or reviewing separately [facility], ordering medications,tests, procedures, referring, communicating with other health lawn caretaker, indepentently interpreting results, counseling the patient and care coordination
[2025-03-12 03:34] LABS: Troponin I 755 ng/L (<or=51)
[2025-03-12] MEDS: Heparin in 0.45% NaCl 25,000 UNIT/250 ML BAG 5.5 UNIT IVINF (03:46)
[2025-03-12] MEDS: Normal Saline 1,000 ML 150 ML IV ×2 (06:16→12:57)
[2025-03-12 06:59] LABS: Abs Immature Grans 0.03 10^3/uL (0.0-0.06); HCT 38.1 % (36.0-46.0); HGB 13.1 g/dL (11.2-15.7); Immature Grans % 0.3 %; MCH 29.8 pg (27.0-33.0); MCHC 34.4 % (32.0-36.0); MCV 87 fL (80-95); MPV 9.8 fL (8.0-11.0); Platelet Count 320 10^3/uL (130-400); RBC 4.39 10^6/uL (3.93-5.22); RDW 13.0 % (11.7-14.6); RDW-SD 41.2 fL; WBC 10.44 10^3/uL (4.4-10.8)
[2025-03-12 07:18] LABS: ALT 40 U/L (14-59); AST 24 U/L (15-37); Albumin 3.4 g/dL (3.4-5.0); Alkaline Phosphatase 76 U/L (46-116); Anion Gap 10.7 mmol/L (3-11); BUN 10 mg/dL (7-18); Bilirubin, Total 0.6 mg/dL (0.2-1.0); CO2 24.3 mmol/L (21.0-32.0); Calcium 8.5 mg/dL (8.5-10.1); Chloride 97 mmol/L (98-107); Glucose 124 mg/dL (74-106); Hemoglobin A1C 5.6 % (<5.7); Sodium 132 mmol/L (136-145); Total Protein 7.2 g/dL (6.4-8.2)
[2025-03-12 07:25] LABS: Potassium 2.9 mmol/L (3.5-5.1)
[2025-03-12 07:40] LABS: Cholesterol 349 mg/dL (<200); HDL Cholesterol 109 mg/dL (>or=50); TSH 2.37 uIU/mL (0.36-3.74)
[2025-03-12 07:41] LABS: Troponin I 552 ng/L (<or=51)
[2025-03-12] MEDS: Losartan 50 MG TAB PO (08:21)
[2025-03-12] MEDS: POTASSIUM CHLORIDE 20 MEQ/100 ML BAG 50 MEQ IV_INF ×2 (08:22→10:21)
--- NOTE | 2025-03-12 08:22 | PDOC.CMIN ---
Date of service: 03/12/25 Time of Service: 08:22 Care Management Initial [facility] Functional Status/Living Situation Patient Presentation: [place] [facility] [place]STEMI. She was lying in bed, and accompanied by her ex- Layo whom is sitting at the bedside. She and Layo reside in [place] [facility], she drives and is active and independent at baseline. Patient denies community concerns at this time and reports that she is familiar with [facility], should she have any needs in the future. Town of Residence: [place] Resides with: Spouse ( Michael) Significant Other/Family: Local Natural Supports: e- Layo Employment Status: Retired Instrumental Activities of Daily Living (ADLs): Independent Medications Medication Management: No Issues/Barriers identified Physical Functioning/Mobility Assistive Device: None Advance Directives Advance Directives: Do you have an Advance Directive: N 11/01/14, 02:07 AD On File at [facility]: N 11/01/14, 02:07 Date Asked 03/11/25 03/11/25, 16:08 AD Date Reviewed COLST On File at [facility] COLST Date Scanned Code Status Resuscitation Status Full Code Insurance Coverage/Financial Issues Insurance: Medicare Part A & B - [id number] Medicaid of [place] - [id number] Care Team Visit Care Team Role Provider Type Tyshawn Baugh MD MD [facility] STAFF PHYSICIAN Kristina Junior Primary Care Provider MD [facility] STAFF PHYSICIAN Eneida Patel Other Providers REG OCCUPATIONAL THERAPIST Chantal Vargas, STRAW HAT BRIM CUTTER OPERATOR Other Providers SPEECH LANGUAGE PATHOLOGIST Emilie Lang RDN, CDCES Other Providers MARINE ENGINEER Kristy Rosario, STRAW HAT BRIM CUTTER OPERATOR Other Providers SPEECH LANGUAGE PATHOLOGIST Jennifer Taylor Other Providers SPEECH LANGUAGE PATHOLOGIST Zena Mckeon, STRAW HAT BRIM CUTTER OPERATOR Other Providers SPEECH LANGUAGE PATHOLOGIST Nimo Canales, STRAW HAT BRIM CUTTER OPERATOR Other Providers SPEECH LANGUAGE PATHOLOGIST Rena Burton Other Providers OTHER Misael Hylton RDN Other Providers MARINE ENGINEER WENDY Bliss Emergency Provider PHYSICIANS CLIENT SERVICES ANALYST Vu Downey MD Admit Provider [facility] STAFF PHYSICIAN Attending Provider Discharge Transportation: EMS Plan: May is being [place] [facility] [place] for further medical workup and treated following an NSTEMI. EMS will provide transportation, patient is agreeable to this plan. Social Determinants of Health Screening Social Determinants of health last assessed in clinic: 03/12/25 Will the Patient Participate in the Screening?: Yes Do you worry about having a steady place to live?: no Problems where you live: no known problems In the past 12 months, have you had to go without electric, gas, oil or water in your home?: no 1. Within the past 12 months, we worried whether our food would run out before we got money to buy more.: Never true 2. Within the past 12 months, the food we bought just didn't last and we didn't have money to get more.: Never true Has lack of transportation kept you from medical appointments or from doing things needed for daily living?: no Has anyone in your life made you feel unsafe or unsupported?: no How hard is it for you to pay for the very basics like food, housing, medical care, and heating? Would you say it is:: Not hard at all Do you want help finding or keeping work or a job?: I do not need or want help If for any reason you need help with day-to-day activities such as bathing, preparing meals, shopping, managing finances, etc., do you get the help you need?: I don’t need any help How often do you feel lonely or isolated from those around you?: Never Do you speak a language other than Occitan at home?: No Does the patient want assistance with any of the above?: No PFSH All Active Problems (Updated 03/11/25 @ 21:37 by Vu Downey MD) Hematuria (Acute) Dehydration (Acute) Elevated troponin (Acute) Dyslipidemia (Acute) Hypertension (Chronic) Hypokalemia (Acute) Cerebrovascular accident (Chronic) Social History Smoking/Tobacco Use Status: Never Smoking risk assessment performed?: Yes Drug use: Never Housing: house Do you feel safe at home: Yes Do you feel safe in your relationship?: Yes
[2025-03-12 10:12] LABS: PTT Activated 36.5 sec (20.6-30.2)
--- NOTE | 2025-03-12 10:14 | PDOC.CMDIS ---
Date of service: 03/12/25 Time of Service: 10:15 LACE Index Scoring Tool Questions: Length of Stay (in days): 1 Was the patient admitted via the E.D.?: Yes Comorbidities: Previous M.I. and Cerebrovascular Disease E.D. Visits: 1 Answers: Total Score: 7 Risk of Readmission: Low Risk Care Management Discharge Plan Reason for Hospitalization: NSTEMI Discharge Plan: Transfer to [facility] [place] planned this afternoon via EMS which will be coordinated by Nursing. Patient is agreeable to this plan. Patient/Family Education Needs: Review transfer instructions, discuss ask me three. Services Needed at Discharge: Transportation (EMS)
--- NOTE | 2025-03-12 11:02 | W.NUTRFU ---
Date of service: 03/12/25 Time of Service: 11:02 Nutrition Note NOTE: Received nutrition consult for diabetes education.mgt. A1c was 5.6% today. FPG 124 this morning. Regular glucose fingersticks not currently ordered - 161yesterday before dinner.
--- NOTE | 2025-03-13 08:41 | NT_ITS ---
PT Notes Visit Reasons: Cerebrovascular accident [place] [facility] [place]. No skilled services were provided for this epsiode of care.
--- NOTE | 2025-03-13 08:41 | PT.INNT ---
PT Notes Visit Reasons: Cerebrovascular accident [place] [facility] [place]. No skilled services were provided for this epsiode of care.
== END 2025-03-12 15:50 | disposition short-term general hospital (02) | DRG 65 ==
LOC: ER 19:24 → ICU 20:09
PROVIDERS: Admitting Provider Hospitalist; Emergency Provider Physician Assistant; Responsible Provider Family Medicine; Visit Provider Hospitalist
DX: E87.6 Hypokalemia; I10 Essential (primary) hypertension; E78.5 Hyperlipidemia, unspecified; R31.9 Hematuria, unspecified; E86.0 Dehydration; I63.81 Other cerebral infarction due to occlusion or stenosis of small artery; N39.0 Urinary tract infection, site not specified; R74.8 Abnormal levels of other serum enzymes; R94.31 Abnormal electrocardiogram [ECG] [EKG]; I25.2 Old myocardial infarction; R20.2 Paresthesia of skin
CPT/HCPCS: 00123; 36415; 36416; 70496; 70498; 71275; 80053; 80061; 82962; 83721; 93005; 96365; 96366; 99285; 74174; 80320; 81003; 81015; 83036; 83735; 84132; 84443; 84484; 85025; 85610; 85730; 93010; 99223; 99239; J1644; J2404; J3480; J3490

== ENCOUNTER 2025-03-22 15:30 | Outpatient (CLI) | payer MEDICARE, MEDICAID, SELFPAY ==
[2025-03-24 11:13] LABS: Lyme Ab w Rflx to Lyme Confirm Negative (Negative)
== END 2025-03-22 15:31 | disposition home or self-care (01) ==
LOC: LBO 15:30
PROVIDERS: Visit Provider General Practice
DX: I63.6 Cerebral infarction due to cerebral venous thrombosis, nonpyogenic (principal)
CPT/HCPCS: 36415; 86618

== ENCOUNTER 2025-05-04 03:18 | Emergency (ER) | payer MEDICARE, MEDICAID, SELFPAY ==
[2025-05-04 03:25] VITALS: BP 155/66; PULSE 77; RESP 18; TEMP 36.8; O2SAT 98
--- NOTE | 2025-05-04 03:32 | W.ED.GENAD ---
Discharge Plan Disposition Patient Disposition: Home Condition: Good Discharge Details Clinical Impression: Vertigo Primary Care Provider: Malvin Junior ED Provider: Vu Goyal Meds and New Rx's Prescriptions: Continued amlodipine 10 mg tablet 10 mg PO DAILY aspirin 81 mg tablet,chewable 1 tab PO DAILY Patient Comments: CHEW ONE TABLET BY MOUTH EVERY DAY ezetimibe 10 mg tablet 10 mg PO DAILY Patient Comments: TAKE ONE TABLET BY MOUTH EVERY DAY hydralazine 25 mg tablet 25 mg PO BID Patient Comments: TAKE ONE TABLET BY MOUTH TWICE A DAY magnesium oxide 400 mg (241.3 mg magnesium) tablet PO DAILY Patient Comments: TAKE ONE TABLET BY MOUTH EVERY EVENING metoprolol succinate 25 mg tablet extended release 24 hr 25 mg PO DAILY Patient Comments: TAKE ONE TABLET BY MOUTH EVERY DAY rosuvastatin 40 mg tablet 40 mg PO DAILY Patient Comments: TAKE ONE TABLET BY MOUTH EVERY EVENING losartan 100 mg tablet 100 mg PO DAILY Patient Comments: TAKE ONE TABLET BY MOUTH EVERY DAY HOLD FOR SBP LESS THAN 90 Discharge Instructions Additional Instructions: You were seen for vertigo that appears to be positional in nature. Your neurological exam is reassuring. Your blood pressure also decent here. Please follow up with PCP. Return to ED for persistent vertigo changes, vision change, new numbness or weakness, inability to walk, other concerns. Stand Alone Forms: Portal Information HPI General Mode of arrival: ambulatory. Date/Time Provider Initiated Documentation: 05/04/25 03:23. Limitations to Documentation: no limitations. Information obtained by: patient, RN notes reviewed and old records reviewed. HPI Narrative: Patient presents to ED from home after she rolled over in bed and had episode of vertigo which did resolve. However, she is concerned as she had a stroke back in March in which she did have some vertigo-like symptoms but also right sided sensory and strength change. She is still doing physical therapy but overall has been doing pretty well. She denies vertigo currently. She is not experiencing vertigo with movement while sitting. She only noticed it when rolling over in bed. She has had no visual change. She still has some residual sensory change on the right side which is no different or worse. She was ambulatory without difficulty. Denies any headache, chest pain, shortness of breath. Related Data Home Medications ?Medication ?Instructions ?Recorded ?Confirmed amlodipine 10 mg tablet 10 mg PO DAILY 05/04/25 05/04/25 aspirin 81 mg chewable tablet 1 tab PO DAILY 05/04/25 05/04/25 ezetimibe 10 mg tablet 10 mg PO DAILY 05/04/25 05/04/25 hydralazine 25 mg tablet 25 mg PO BID 05/04/25 05/04/25 losartan 100 mg tablet 100 mg PO DAILY 05/04/25 05/04/25 magnesium oxide 400 mg (241.3 mg mg PO DAILY 05/04/25 magnesium) tablet metoprolol succinate 25 mg 25 mg PO DAILY 05/04/25 05/04/25 tablet,extended release 24 hr rosuvastatin 40 mg tablet 40 mg PO DAILY 05/04/25 05/04/25 Allergies Allergy/AdvReac Type Severity Reaction Status Date / Time Sulfa (Sulfonamide Allergy Intermediate Itching Verified 05/04/25 03:28 Antibiotics) General Stated Complaint: Dizzy/Sync ALVIN: 3 Exam Narrative Exam Narrative: Gen: WDWN female in NAD. Vitals per triage. HENT: NC/AT. Normal face. Eyes: Pupils are very small but reactive. EOMI. VF in tact to confrontation. Neck: Supple, trachea midline. Chest: Normal respirations. Lungs CTAB. CV: RRR w/o murmur. Good radial pulses. Neuro: A+Ox3. Normal speech, mentation, gait. CN II-XII in tact. Normal strength. Normal sensation. Minimal dysmetria with right hand, baseline since the stroke per patient. Course Vital Signs Vital signs: Vital Signs Temperature 98.3 F 05/04/25 03:25 Pulse 77 05/04/25 03:25 Respiratory Rate 18 05/04/25 03:25 Blood Pressure 155/66 H 05/04/25 03:25 Pulse Oximetry 98 05/04/25 03:25 Temperature 98.3 F 05/04/25 03:25 Temperature Source Oral 05/04/25 03:25 Pulse 77 05/04/25 03:25 Respiratory Rate 18 05/04/25 03:25 Blood Pressure 155/66 H 05/04/25 03:25 Pulse Oximetry 98 05/04/25 03:25 Oxygen Delivery Method Room Air 05/04/25 03:25 Oxygen Flow Rate 0 05/04/25 03:25 Pain Level 0 05/04/25 03:25 Medical Decision Making Patient presenting to ED after developing vertigo when rolling over in bed. She has had a couple of episodes of it but it has not been persistent only when she rolls over. Currently no vertigo. No other new neurologic changes. Blood pressure is decent here. Review of her [facility] records show that the NSTEMI as well as the thalamic stroke were all thought to be related to elevated blood pressure. Given her description of the vertigo and her history of peripheral vertigo documented in the [facility] records, I feel tonight's events are positional in nature and not related to a recurrent stroke. She is otherwise neurologically intact and baseline. Patient is reassured. She should continue her medications. Follow-up with primary care. Return precautions provided. Medical Records Medical records reviewed: Yes I reviewed the patient's medical records. Medical records narrative: [facility] records PFSH All Active Problems (Updated 05/04/25 @ 03:51 by Vu Goyal MD) Vertigo (Acute) Hematuria (Acute) Elevated troponin (Acute) Medical History (Updated 05/04/25 @ 03:51 by Vu Goyal MD) NSTEMI (non-ST elevated myocardial infarction) Dyslipidemia Hypertension Cerebrovascular accident Social History Smoking/Tobacco Use Status: Never Smoking risk assessment performed?: Yes Alcohol Intake: never Drug use: Never Housing: house Do you feel safe at home: Yes Do you feel safe in your relationship?: Yes
[2025-05-04 03:57] VITALS: BP 130/87; PULSE 72; RESP 18; O2SAT 98
== END 2025-05-04 03:57 | disposition home or self-care (01) ==
LOC: ER 04:29
PROVIDERS: Emergency Provider Emergency Medicine; PCP General Practice
DX: R42 Dizziness and giddiness (principal)
CPT/HCPCS: 99282 ×2